=== PATIENT | male | born 1950 | race Caucasian/White ===

== ENCOUNTER 2018-07-06 23:54 | Emergency (ER) | payer OTHER ==
[~2018-07-06] VITALS: Ht 175.3 cm; Wt 83.9 kg
[~2018-07-06 23:54] MED LIST: AZITHROMYCIN 2250 MG PO; FLEXERIL PO; HYTRIN 2MG CAPSU2 M1 PO; IBUPROFEN 800800 M1 PO; MEDROLDOSEPACK PO; METHADONE HCL5 MG PO; NEURONTIN 300300 M1 PO; NORCO 10-325 T1 EACH PO; PRINIVIL20 MG PO; VENTOLIN HFA 1818 GM INH; VIAGRA100 MG PO; VITAMIN D1000 UNI1 PO; ZYRTEC10 MG PO
[2018-07-07] MEDS ORDERED: OMEPRAZOLE 20 M20 M1 PO (00:12)
[2018-07-07] MEDS ORDERED: CARDIO OMEGA B1 EACH PO (00:13)
[2018-07-07] MEDS ORDERED: LISINOPRIL-HCT1 EAC2 PO (00:13)
[2018-07-07] MEDS ORDERED: ALEVE220 MG PO (00:13)
[2018-07-07] MEDS ORDERED: ASPIR 8181 MG PO (00:14)
[2018-07-07] MEDS ORDERED: SINGULAIR 10 MG10 M1 PO (00:14)
[2018-07-07] MEDS ORDERED: COMBIVENT RESPIM4 GM IH (00:14)
[2018-07-07] MEDS ORDERED: FLOMAX0.4 MG PO (00:14)
[2018-07-07 00:46] LABS: ABSOLUTE BASOPHILS 0.1 thou/uL (0.0-0.2); ABSOLUTE EOSINOPHILS 0.1 thou/uL (0.0-0.7); ABSOLUTE LYMPHOCYTES 1.9 thou/uL (0.8-5.3); ABSOLUTE MONOCYTES 0.8 thou/uL (0.0-1.2); ABSOLUTE NEUTROPHILS 5.9 thou/uL (1.6-8.1); BASOPHILS 0.9 %; EOSINOPHILS 1.4 %; HEMATOCRIT 42.6 % (42.0-52.0); HEMOGLOBIN 14.6 gm/dL (14.0-18.0); LYMPHOCYTES 21.2 %; MCH 30.8 pg (26.0-34.0); MCHC 34.2 g/dL (28.0-37.0); MCV 90.1 fL (80.0-100.0); MONOCYTES 9.3 %; MPV 9.3 fl. (7.2-11.1); NUCLEATED RBCS 0 /100WBC; PLATELET COUNT* 242 thou/uL (150-400); POLYS 67.2 %; RBC 4.72 mil/uL (4.50-6.00); RDW-CV 13.8 % (10.5-14.5); WBC 8.8 thou/uL (4.0-11.0)
[2018-07-07 00:53] LABS: ANION GAP 5 mmol/L (7-16); BUN 22 mg/dL (7-18); CALCIUM 8.3 mg/dL (8.5-10.1); CHLORIDE 106 mmol/L (98-107); CO2 30 mmol/L (21-32); CREATININE 1.1 mg/dL (0.6-1.3); GLUCOSE 131 mg/dL (70-99); POTASSIUM 3.5 mmol/L (3.5-5.1); SODIUM 141 mmol/L (136-145)
[2018-07-07 00:58] LABS: PROTIME 10.7 Seconds (9.20-11.50)
[2018-07-07 01:04] LABS: ALBUMIN 3.4 g/dL (3.4-5.0); ALKALINE PHOSPHATASE 60 U/L (46-116); LIPASE 206 U/L (73-393); MAGNESIUM 1.9 mg/dL (1.8-2.4); NT-PRO BRAIN NAT PEPTIDE 215 pg/mL (<300); SGOT 16 U/L (15-37); SGPT 23 U/L (30-65); TOTAL BILIRUBIN 0.3 mg/dL (<0.1-1.0); TOTAL PROTEIN 6.5 g/dL (6.4-8.2); TROPONIN-I LEVEL <0.06 ng/mL (<0.06)
[2018-07-07 04:46] VITALS: BP 147/95
--- NOTE | 2018-07-07 16:25 | EKG ---
[place] [address] ELECTROCARDIOGRAM REPORT Name: PRAMOD CERVANTES Room: [facility]#: [id number] Admission: 07/06/18 Attend Phys: Discharge: 07/07/18 Date of : 48 Report #: [id number] THIS REPORT FOR: //name// [facility] ED Test Date: 2018-07-07 Test Time: 00:30:35 Pat Name: PRAMOD CERVANTES Department: Room: Gender: M Orthopaedic Nurse: : 1950 Requested By: Teresa Ritchie Order Number: [id number] MD: Deric Wang Measurements Intervals Downs Rate: 77 P: 76 MT: 147 QRS: 44 QRSD: 72 T: 72 QT: 368 QTc: 417 Interpretive Statements Sinus rhythm Anterior infarct, age indeterminate possible Compared to ECG 10/17/2014 10:10:33 Myocardial infarct finding now present Sinus tachycardia no longer present Electronically Signed On 07-07-2018 16:25:18 CDT by Deric Wang [email or web address] <ELECTRONICALLY SIGNED> By: Deric Wang MD, [facility] 07/07/18 1625 Deric Wang MD, FACC /EPI
== END 2018-07-07 04:46 | disposition short-term general hospital (02) ==
LOC: M.ERS 23:54
PROVIDERS: Emergency Medicine
DX: J44.9 Chronic obstructive pulmonary disease, unspecified (principal); I31.3 Pericardial effusion (noninflammatory); R60.0 Localized edema; I10 Essential (primary) hypertension; Z87.891 Personal history of nicotine dependence; Z88.8 Allergy status to other drugs, medicaments and biological substances